=== PATIENT | female | born 1990 | race American Indian/Alaskan Native ===

== ENCOUNTER 2017-08-31 04:27 | Emergency (ER) | payer SELFPAY ==
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
[2017-08-31 12:43] VITALS: BP 136/88
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
[2017-08-31] MEDS ORDERED: TYLENOL ONE (13:39)
[2017-08-31] MEDS ORDERED: TYLENOL PO ONE (13:42)
== END 2017-08-31 13:50 | disposition home or self-care (01) ==
LOC: ED 04:27
DX: O26.892 Other specified pregnancy related conditions, second trimester (principal); R10.9 Unspecified abdominal pain; E11.9 Type 2 diabetes mellitus without complications; F17.200 Nicotine dependence, unspecified, uncomplicated; Z88.1 Allergy status to other antibiotic agents; Z3A.18 18 weeks gestation of pregnancy
CPT/HCPCS: 36415; 76805; 76817; 84702; 99284

== ENCOUNTER 2018-01-29 13:10 | Outpatient (CLI) | payer OTHER, MEDICAID ==
[2018-01-29 13:55] VITALS: BP 128/72
== END 2018-01-29 14:58 ==
LOC: EDSTATUS 13:24 → TRG 13:32 → EEVIPCON 13:32 → TRG 13:33
PROVIDERS: ATTEND Obstetrics & Gynecology
DX: O62.9 Abnormality of forces of labor, unspecified (principal); Z3A.39 39 weeks gestation of pregnancy
CPT/HCPCS: 59025